=== PATIENT | female | born 1995 | race Caucasian/White ===

== ENCOUNTER 2017-08-06 18:34 | Inpatient (IN) | payer BC, MEDICAID ==
[~2017-08-06] VITALS: Ht 160 cm; Wt 91.4 kg
[~2017-08-06 18:34] MED LIST: METR-1 PO; RISP0.5T20 OR
[2017-08-06 19:00] VITALS: BP 124/69; PULSE 113; RESP 18; TEMP 98.4
[2017-08-06 20:24] LABS: HEMOGLOBIN 14.9 GM/DL (11.6-15.3); MEAN CELL VOLUME 91.9 FL (80.0-100.0); MEAN CORPUSCULAR HEMOGLOBIN 30.4 PG (27.0-34.0); MEAN CORPUSCULAR HGB CONC 33.1 % (32.0-36.0); MEAN PLATELET VOLUME 8.2 FL (7.0-11.0); PLATELET COUNT 318 TH/MM3 (150-450); RED BLOOD COUNT 4.89 MIL/MM3 (4.00-5.30); RED CELL DISTRIBUTION WIDTH 13.3 % (11.6-17.2); WHITE BLOOD COUNT 10.3 TH/MM3 (4.0-11.0)
[2017-08-06 20:25] LABS: BASOPHIL # 0.1 TH/MM3 (0-0.2); BASOPHIL % 0.8 % (0.0-2.0); EOSINOPHIL # 0.7 TH/MM3 (0-0.4); EOSINOPHIL % 6.7 % (0.0-4.0); LYMPH % 26.3 % (9.0-44.0); LYMPHOCYTE # 2.7 TH/MM3 (1.0-4.8); MONOCYTE # 0.8 TH/MM3 (0-0.9); NEUT % 58.2 % (16.0-70.0)
[2017-08-06 20:36] LABS: ALT (GPT) 37 U/L (10-53)
[2017-08-06 20:42] LABS: AST (GOT) 36 U/L (15-37); BICARBONATE 29.1 MEQ/L (21.0-32.0); BLOOD UREA NITROGEN 12 MG/DL (7-18); CALCIUM 9.4 MG/DL (8.5-10.1); CHLORIDE 106 MEQ/L (98-107); GLOMERULAR FILTRATION RATE 63 ML/MIN (>89); GLUCOSE,RANDOM 69 MG/DL (74-106); SODIUM (NA) 143 MEQ/L (136-145)
[2017-08-06 20:46] LABS: ALKALINE PHOSPHATASE 92 U/L (45-117); TOTAL BILIRUBIN ADULT 0.3 MG/DL (0.2-1.0)
[2017-08-06] MEDS ORDERED: MULTTAB67 PO (21:28)
--- NOTE | 2017-08-06 22:24 | PD ---
HPI Chief Complaint: Psychiatric Symptoms Time Seen by Provider: 22:13 Travel History International Travel<30 days: No Contact w/Intl Traveler<30days: No Traveled to known affect area: No History of Present Illness HPI 22-year-old female with history of schizoaffective mood disorder here for evaluation of right knee pain as well as requesting psychiatric evaluation for suicidal ideation. The patient reports that for the last 2 years, every day she has been thinking about committing suicide. She has tried to hurt herself in the past by overdosing. She states that her most recent plan involves helium and a plastic bag. She has been on several different medications for her depression and schizophrenia in the past, however currently she is not on any meds. She is also complaining of anterior right knee pain that started yesterday after cleaning floors while in her knees. She denies any direct trauma. PFSH Past Medical History ADHD: No Bipolar Disorder: Yes Anxiety: Yes Depression: Yes Cancer: No Cardiovascular Problems: No Diabetes: No Diminished Hearing: No Headaches: Yes (HX OF PER PT) Medical other: Yes (ptsd) Psychiatric: Yes (BIPOLAR, PTSD, ANXIETY) Immunizations Current: Yes Migraines: No Schizophrenia: Yes Seizures: No Thyroid Disease: No Ulcer: No Tetanus Vaccination: > 5 Years Influenza Vaccination: No ?: Not LMP: 07/24/17 : 0 Ovarian Cysts: Yes Past Surgical History Appendectomy: No Section: No Cholecystectomy: No Other Surgery: No Social History Alcohol Use: Yes (EVERY OTHER WEEK 3) Tobacco Use: Yes (1/2 PACK) Substance Use: Yes Allergies-Medications (Allergen,Severity, Reaction): Coded Allergies: aripiprazole (Unverified Allergy, Intermediate, SHAKING, 08/06/17) doxycycline (Unverified Allergy, Intermediate, UNKNOWN, 08/06/17) latex (Verified Allergy, Intermediate, 08/06/17) minocycline (Unverified Allergy, Intermediate, UNKNOWN, 08/06/17) naproxen (Verified Allergy, Intermediate, 08/06/17) oxcarbazepine (Unverified Allergy, Intermediate, UNKNOWN, 08/06/17) tigecycline (Unverified Allergy, Intermediate, UNKNOWN, 08/06/17) Reported Meds & Prescriptions Reported Meds & Active Scripts Active Reported Multiple Vitamin 1 Tab 1 Tab PO DAILY Review of Systems Except as stated in HPI: all other systems reviewed are Neg Physical Exam Narrative GENERAL: Well-developed, well-nourished, comfortable, no apparent distress. SKIN: Focused skin assessment warm/dry. HEAD: Atraumatic. Normocephalic. EYES: Pupils equal and round. No scleral icterus. No injection or drainage. ENT: Mucous membranes pink and moist. NECK: Trachea midline. No JVD. CARDIOVASCULAR: Regular rate and rhythm. No murmur appreciated. RESPIRATORY: No accessory muscle use. Clear to auscultation. Breath sounds equal bilaterally. GASTROINTESTINAL: Abdomen soft, non-tender, nondistended. MUSCULOSKELETAL: No obvious deformities. No clubbing. No cyanosis. No edema. Right knee without warmth or erythema with mild anterior tenderness, with normal range of motion. NEUROLOGICAL: Awake and alert. No obvious cranial nerve deficits. Motor grossly within normal limits. Normal speech. PSYCHIATRIC: Flat affect. Poor eye contact. Data Data Last Documented VS Vital Signs Date Time Temp Pulse Resp B/P (MAP) Pulse Ox O2 Delivery O2 Flow Rate FiO2 08/06/17 21:29 20 08/06/17 19:00 98.4 113 124/69 (87) Orders Orders Complete Blood Count With Diff (08/06/17 19:06) Comprehensive Metabolic Panel (08/06/17 19:06) Thyroid Stimulating Hormone (08/06/17 19:06) Psych Screen (08/06/17 19:06) Drug Screen, Random Urine (08/06/17 19:06) Knee, Complete (4vws) (08/06/17 ) Acetaminophen (Tylenol) (08/06/17 23:30) Labs Laboratory Tests Test 08/06/17 19:35 08/06/17 19:44 Urine Opiates Screen NEG Urine Barbiturates Screen NEG Urine Amphetamines Screen POS Urine Benzodiazepines Screen NEG Urine Cocaine Screen POS Urine Cannabinoids Screen POS White Blood Count 10.3 TH/MM3 Red Blood Count 4.89 MIL/MM3 Hemoglobin 14.9 GM/DL Hematocrit 45.0 % Mean Corpuscular Volume 91.9 FL Mean Corpuscular Hemoglobin 30.4 PG Mean Corpuscular Hemoglobin Concent 33.1 % Red Cell Distribution Width 13.3 % Platelet Count 318 TH/MM3 Mean Platelet Volume 8.2 FL Neutrophils (%) (Auto) 58.2 % Lymphocytes (%) (Auto) 26.3 % Monocytes (%) (Auto) 8.0 % Eosinophils (%) (Auto) 6.7 % Basophils (%) (Auto) 0.8 % Neutrophils # (Auto) 6.0 TH/MM3 Lymphocytes # (Auto) 2.7 TH/MM3 Monocytes # (Auto) 0.8 TH/MM3 Eosinophils # (Auto) 0.7 TH/MM3 Basophils # (Auto) 0.1 TH/MM3 CBC Comment DIFF FINAL Differential Comment Blood Urea Nitrogen 12 MG/DL Creatinine 1.10 MG/DL Random Glucose 69 MG/DL Total Protein 8.0 GM/DL Albumin 4.0 GM/DL Calcium Level 9.4 MG/DL Alkaline Phosphatase 92 U/L Aspartate Amino Transf (AST/SGOT) 36 U/L Alanine Aminotransferase (ALT/SGPT) 37 U/L Total Bilirubin 0.3 MG/DL Sodium Level 143 MEQ/L Potassium Level 3.7 MEQ/L Chloride Level 106 MEQ/L Carbon Dioxide Level 29.1 MEQ/L Anion Gap 8 MEQ/L Estimat Glomerular Filtration Rate 63 ML/MIN Thyroid Stimulating Hormone 3rd Gen 0.715 uIU/ML MDM Medical Decision Making Medical Screen Exam Complete: Yes Emergency Medical Condition: Yes Differential Diagnosis Depression, suicidal ideation, right knee sprain Narrative Course After interviewing the patient, she was placed under a Blanco act by me as I believe she is a harm to herself. Vital signs reviewed. CBC is unremarkable. CMP is remarkable for creatinine 1.1, GFR 63, otherwise unremarkable. Urine drug screen is positive for amphetamines, cocaine, and cannabinoids. Right knee x-ray: Suspected patellar tendinosis. No fracture or subluxation of the right knee. Patient is medically cleared for psychiatric evaluation and disposition by them. Diagnosis Primary Impression: Medical clearance for psychiatric admission Joseph Nicole MD Aug 06, 2017 22:24
--- NOTE | 2017-08-06 22:49 | RADRPT ---
EXAM DATE/TIME: 08/06/2017 22:27 [place] COMPARISON: No previous studies available for comparison. INDICATIONS : Right knee pain for the past week. Painful to walk on. No prior trauma. MEDICAL HISTORY : None. SURGICAL HISTORY : None. ENCOUNTER: Initial ACUITY: 1 week PAIN SCORE: 10/10 LOCATION: Right knee. FINDINGS: No fracture, subluxation or significant joint effusion demonstrated. The patellar tendon appears mild ly thickened on the lateral view. CONCLUSION: Suspected patellar tendinosis. No fracture or subluxation of the right knee. Bryan Hill MD on August 06, 2017 at 22:46 Board Certified Radiologist. This report was verified electronically.
[2017-08-06] MEDS ORDERED: ACETAMINOPHEN 325 MG TAB PO ONE (23:30)
[2017-08-07 07:38] VITALS: BP 116/71; PULSE 83; RESP 16; O2SAT 96
[2017-08-07 14:19] VITALS: BP 131/76; PULSE 70; RESP 14; O2SAT 98
[2017-08-07 18:06] VITALS: BP 133/56; PULSE 69; RESP 16; O2SAT 100
[2017-08-07] MEDS ORDERED: diphenhydrAMINE HCL 50 MG CAP - HS PRN PO (21:15)
[2017-08-07] MEDS ORDERED: MAGNESIUM HYDROXIDE SUSP 30 ML CUP PO PRN (21:15)
[2017-08-07] MEDS ORDERED: hydrOXYzine HCL 50 MG TAB PO PRN (21:15)
[2017-08-07] MEDS ORDERED: ACETAMINOPHEN 325 MG TAB PO PRN (21:15)
[2017-08-07] MEDS ORDERED: diphenhydrAMINE HCL 50 MG/ML VIAL - HS PRN IM (21:15)
[2017-08-07] MEDS ORDERED: ALUMINUM/MAGNESIUM/SIMETH 30 ML CUP PO PRN (21:15)
[2017-08-07 22:13] VITALS: BP 129/85; PULSE 60; RESP 18; TEMP 98; O2SAT 99
[2017-08-08 05:46] VITALS: BP 108/56; PULSE 61; RESP 18; TEMP 97.7; O2SAT 97
[2017-08-08 07:23] LABS: AUTOMATED NEUTROPHIL # 3.1 TH/MM3 (1.8-7.7); BASOPHIL # 0.1 TH/MM3 (0-0.2); BASOPHIL % 1.1 % (0.0-2.0); EOSINOPHIL # 0.6 TH/MM3 (0-0.4); EOSINOPHIL % 7.8 % (0.0-4.0); HEMOGLOBIN 13.6 GM/DL (11.6-15.3); LYMPH % 38.8 % (9.0-44.0); LYMPHOCYTE # 2.8 TH/MM3 (1.0-4.8); MEAN CELL VOLUME 90.4 FL (80.0-100.0); MEAN CORPUSCULAR HEMOGLOBIN 30.7 PG (27.0-34.0); MEAN PLATELET VOLUME 8.1 FL (7.0-11.0); MONO % 8.5 % (0.0-8.0); MONOCYTE # 0.6 TH/MM3 (0-0.9); NEUT % 43.8 % (16.0-70.0); PLATELET COUNT 267 TH/MM3 (150-450); RED BLOOD COUNT 4.43 MIL/MM3 (4.00-5.30); RED CELL DISTRIBUTION WIDTH 13.3 % (11.6-17.2); WHITE BLOOD COUNT 7.2 TH/MM3 (4.0-11.0)
[2017-08-08 07:42] LABS: BICARBONATE 25.6 MEQ/L (21.0-32.0); BLOOD UREA NITROGEN 6 MG/DL (7-18); CALCIUM 8.9 MG/DL (8.5-10.1); CHLORIDE 107 MEQ/L (98-107); CHOLESTEROL 109 MG/DL (120-200); CREATININE 0.77 MG/DL (0.50-1.00); GLOMERULAR FILTRATION RATE 95 ML/MIN (>89); GLUCOSE,RANDOM 97 MG/DL (74-106); SODIUM (NA) 143 MEQ/L (136-145); TRIGLYCERIDES 76 MG/DL (42-150)
[2017-08-08 07:52] LABS: CHOLESTEROL/ HDL RATIO 3.28 RATIO; FREE T4 1.08 NG/DL (0.76-1.46); HDL CHOLESTEROL 33.2 MG/DL (40.0-60.0); LDL CHOLESTEROL 61 MG/DL (0-99)
[2017-08-08] MEDS: NICOTINE 21 MG/24 HR PATCH T-DERMAL SCH (08:50)
[2017-08-08] MEDS: PALIPERIDONE ER 6 MG TAB PO SCH (13:15)
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
[2017-08-08 15:58] LABS: HEMOGLOBIN A1C 5.5 % (4.3-6.0)
[2017-08-08 18:26] VITALS: BP 138/89; PULSE 67; RESP 16; TEMP 98; O2SAT 100
[2017-08-08] MEDS: REMOVE OLD NICOTINE PATCH T-DERMAL SCH (21:00)
[2017-08-09 05:42] VITALS: BP_SYST 103; PULSE 69; RESP 18; TEMP 98; O2SAT 98
[2017-08-09] MEDS: PALIPERIDONE ER 6 MG TAB PO SCH (09:14)
[2017-08-09] MEDS: NICOTINE 21 MG/24 HR PATCH T-DERMAL SCH (09:14)
--- NOTE | 2017-08-09 16:10 | HHI.PYPN ---
Subjective Remarks Patient seen for follow, chart reviewed. Discussion nursing staff reported patient continues report feeling depressed, seclusive to room but is attending groups, slept well, denying suicide ideations. Patient was found in the room notably, cooperative. Patient states that she misses being home but feeling somewhat better and had some difficulty with sleep last night. Patient denies any auditory hallucinations today stating that she is trying to stay busy which helps decrease the voices. Patient continues report feeling depressed but less intense today. She continues to have intermittent suicide ideations. Patient discussed interest in being on long-acting injectable. Review of Systems Except as stated in HPI: all other systems reviewed are Neg Mental Status Examination Appearance: Appropriate Consciousness: Alert Orientation: x4 Motor Activity: Normal gait Speech: Unremarkable Language: Adequate Fund of Knowledge: Inadequate Attention and Concentration: Adequate Memory: Unremarkable Mood: Sad Affect: Sad Thought Process & Associations: Intact, Linear Thought Content: Appropriate Hallucination Type: None Delusion Type: None Suicidal Ideation: Yes (Intermittent) Suicidal Plan: No Suicidal Intention: No Homicidal Ideation: No Homicidal Plan: No Homicidal Intention: No Insight: Fair Judgment: Impulsive Results Vitals/IOs Vital Signs Date Time Temp Pulse Resp B/P (MAP) Pulse Ox O2 Delivery O2 Flow Rate FiO2 08/09/17 05:42 98.0 69 18 103/ 98 08/07/17 18:06 Room Air Assessment & Plan Problem List: (1) Schizoaffective disorder ICD Codes: F25.9 - Schizoaffective disorder, unspecified Assessment & Plan Estimated LOS: 3-5 days. Patient this time continues report feeling depressed although appears to be improving but continues with intermittent suicide ideations but sensation of auditory hallucinations. We will continue current treatment, continue monitor mood and behavior. Discharge planning in progress. Justification for Cont. Inpt. At risk of further decompensation at lower level of care Discharge Planning Patient return back to her boyfriend's residence once psychiatrically stable. Dustin Herring MD Aug 09, 2017 16:10
[2017-08-09 18:05] VITALS: BP 137/76; PULSE 98; RESP 20; TEMP 98.4; O2SAT 100
[2017-08-09] MEDS: REMOVE OLD NICOTINE PATCH T-DERMAL SCH (21:00)
[2017-08-10 05:31] VITALS: BP 106/57; PULSE 74; RESP 16; TEMP 97.8; O2SAT 97
[2017-08-10] MEDS: NICOTINE 21 MG/24 HR PATCH T-DERMAL SCH (10:03)
[2017-08-10] MEDS: PALIPERIDONE ER 6 MG TAB PO SCH (10:04)
--- NOTE | 2017-08-10 13:18 | HHI.PYPN ---
Subjective Remarks Patient was seen and case discussed with nursing. Patient is compliant with her medications and behaving well on the unit. Per nursing she is spending her morning in bed. She denies auditory hallucinations. Patient denies suicidal or homicidal ideation intent or plan. So she is hoping for discharge next week. Concerned about job loss. Mental Status Examination Appearance: Appropriate Consciousness: Alert Orientation: x4 Motor Activity: Normal gait Speech: Unremarkable Language: Adequate Fund of Knowledge: Inadequate Attention and Concentration: Adequate Memory: Unremarkable Mood: Sad Affect: Sad Thought Process & Associations: Intact, Linear Thought Content: Appropriate Hallucination Type: None Delusion Type: None Suicidal Ideation: No Suicidal Plan: No Suicidal Intention: No Homicidal Ideation: No Homicidal Plan: No Homicidal Intention: No Insight: Fair Judgment: Impulsive Results Vitals/IOs Vital Signs Date Time Temp Pulse Resp B/P (MAP) Pulse Ox O2 Delivery O2 Flow Rate FiO2 08/10/17 05:31 97.8 74 16 106/57 (73) 97 08/07/17 18:06 Room Air Assessment & Plan Problem List: (1) Schizoaffective disorder ICD Codes: F25.9 - Schizoaffective disorder, unspecified Assessment & Plan Continue current treatment plan Justification for Cont. Inpt. Patient will decompensate in a less restrictive setting Amilcar Sorto DO Aug 10, 2017 13:18
[2017-08-10] MEDS: REMOVE OLD NICOTINE PATCH T-DERMAL SCH (21:00)
[2017-08-11 05:08] VITALS: BP 108/60; PULSE 79; RESP 16; TEMP 97.6; O2SAT 99
[2017-08-11] MEDS: PALIPERIDONE ER 6 MG TAB PO SCH (08:36)
[2017-08-11] MEDS: NICOTINE 21 MG/24 HR PATCH T-DERMAL SCH (08:37)
--- NOTE | 2017-08-11 10:51 | HHI.PYPN ---
Subjective Remarks Patient was seen and case discussed with nursing. Patient is pleasant and cooperative with exam. She is bright and cheerful during the interview. Describes her mood today is 8 out of 10. Shaking forward to a visit from her boyfriend. She denies suicidal homicidal ideation intent or plan. Mental Status Examination Appearance: Appropriate Consciousness: Alert Orientation: x4 Motor Activity: Normal gait Speech: Unremarkable Language: Adequate Fund of Knowledge: Adequate Attention and Concentration: Adequate Memory: Unremarkable Mood: Appropriate Affect: Appropriate Thought Process & Associations: Intact, Linear Thought Content: Appropriate Hallucination Type: None Delusion Type: None Suicidal Ideation: No Suicidal Plan: No Suicidal Intention: No Homicidal Ideation: No Homicidal Plan: No Homicidal Intention: No Insight: Fair Judgment: Impulsive Results Vitals/IOs Vital Signs Date Time Temp Pulse Resp B/P (MAP) Pulse Ox O2 Delivery O2 Flow Rate FiO2 08/11/17 05:08 97.6 79 16 108/60 (76) 99 08/07/17 18:06 Room Air Intake and Output 08/11/17 08/11/17 08/12/17 08:00 16:00 00:00 Intake Total 360 ml Balance 360 ml Assessment & Plan Problem List: (1) Schizoaffective disorder ICD Codes: F25.9 - Schizoaffective disorder, unspecified Assessment & Plan Continue current treatment plan Justification for Cont. Inpt. Patient will decompensate in a less restrictive setting Amilcar Sorto DO Aug 11, 2017 10:51
[2017-08-11 16:57] VITALS: BP 137/64; PULSE 100; RESP 18; TEMP 98; O2SAT 100
[2017-08-11 18:23] VITALS: BP 137/64; PULSE 100; RESP 18; TEMP 98; O2SAT 100
[2017-08-11] MEDS: REMOVE OLD NICOTINE PATCH T-DERMAL SCH (21:00)
[2017-08-12 06:34] VITALS: BP 108/57; PULSE 59; RESP 17; TEMP 97.7
[2017-08-12] MEDS: PALIPERIDONE ER 6 MG TAB PO SCH (08:33)
[2017-08-12] MEDS: NICOTINE 21 MG/24 HR PATCH T-DERMAL SCH (08:33)
[2017-08-12] MEDS ORDERED: INVE6TAB3 PO (16:22)
--- NOTE | 2017-08-12 16:23 | HHI.DS ---
Psychiatry Discharge Summary Inpatient Psychiatric care?: Yes Advance Directive: No Reason Not Provided: DECLINED Mental Health AdvanceDirective: No Health Care Proxy: No Admission Admission Date Aug 07, 2017 at 20:38 Admission Diagnosis: (1) Schizoaffective disorder ICD Code: F25.9 - Schizoaffective disorder, unspecified Brief History Patient is a 22-year-old woman, single, no children domiciled with boyfriend, employed, with a past psychiatric history of schizoaffective disorder bipolar type, PTSD, with multiple psychiatric admissions (last time at 7 years old), multiple suicide attempts (last time in May of this year), with history of self injury behavior, history of polysubstance use (methamphetamines/cocaine/ heroine), who had presented to the ED due to right knee pain and was endorsing suicide ideations which patient was admitted to the inpatient psychiatry for further evaluation and management. Patient was found lying hospital and that to be tearful but cooperative interview today. Patient states for the past 2 weeks he had been going on it polysubstance binge including methamphetamine which he states she smoked, snorted, and 8, cocaine use in the form of crack cocaine and powder, and smoked heroin. Patient states that she had been having worsening suicide ideations for the past 2 weeks and for this reason I went on a drug binge. Patient reports having disturbed sleep, decreased appetite, energy, concentration, with feeling depressed along with feeling helpless and hopeless. Patient states that she has not had been having thoughts of just quitting her job and jumping off a bridge. Patient reports having decreased self-esteem feeling that she is a failure as a person and had been neglecting her self-care for the past couple of weeks. Patient also mentions she had been engaging in risky behaviors such as promiscuity without protection, endorsing racing thoughts but denying any decreased need for sleep. Patient denies any perceptual disturbances at this time. No delusional material elicited. Family psychiatric history: Father with antisocial personality disorder, uncle with ADD D, grandmother with schizoaffective disorder, no suicides in the family. Past psychiatric history: Previous psychiatric diagnoses of schizoaffective disorder bipolar type, PTSD, 20 previous psychiatric admissions, last time being a 61 years old, 6 prior suicide attempts, last time being in May 2017 via overdose with substances, history of self-induced behavior via burning self with hot water, punching self in the face. Patient reports previous medication trials include risperidone, Wellbutrin, lithium, Geodon, Prozac, Zoloft, trazodone, Abilify. Substance use history: Patient reports tobacco use (+), alcohol use previously heavy but now reports drinking twice every 2 weeks last time being 2 weeks ago, daily marijuana use for the past couple of months reports having used acid, shrooms, Xanax, benzos, description opioids. Past medical history: Denies Allergies: Abilify, doxycycline, latex, minocycline, naproxen, oxcarbamazepine, tigecycline Social history: Single, no children, domiciled with boyfriend and his family, employed at a [employer] full-time, no history, no asked to firearms. Collateral contact (boyfriend) Mello Davis [phone] Tobacco Use In Past 30 Days: 5 or More Cigarettes/Day Alcohol Use: 2-4 Times Per Month Hospital Course Patient is a 22-year-old woman, single, no children domiciled with boyfriend, employed, with a past psychiatric history of schizoaffective disorder bipolar type, PTSD, with multiple psychiatric admissions (last time at 17 years old), multiple suicide attempts (last time in May of this year), with history of self injury behavior, history of polysubstance use (methamphetamines/cocaine/ heroine), who had presented to the ED due to right knee pain and was endorsing suicide ideations which patient was admitted to the inpatient psychiatry for further evaluation and management. Patient was started on paliperidone 6mg PO daily for mood stabilization and psychosis which she tolerated well with no notable adverse drug reactions. Patient was noted to be compliant with treatment with fair insight into the importance of adhering to her treatment. She was noted with improvement in mood, denied any perceptual disturbances nor report any delusions; denied having any suicidal or homicidal ideations and was future oriented. She was observed by staff to participate with staff adequately and compliant with treatment. Patient was noted to participate in self care, engaging with staff, began participating in groups/activities and maintaining adequate hygiene. Patient reported feeling more hopeful, future oriented and motivated to continue treatment and outpatient follow up. She was counseled on importance of abstinence from substance use and was agreeable to outpatient rehabilitation program for substance use. Treatment team was able to set up outpatient follow up appointments which the patient can continue her current medication regimen. Upon discharge patient stated that she was feeling better, reported feeling well with the treatment, as well as motivation to continue recommendations and denied any SI, HI, perceptual disturbances or delusions. Weighing the acute, chronic, and protective factors and based on the available evidence, I cpht to a reasonable degree of medical certainty that the patient is at low imminent risk of harm to self or others from a mental illness as defined under the [place] act and his level of function is adequate as observed on the unit for planned level of outpatient care. She was counseled regarding warning signs for need to return to the psychiatric emergency room as part of a general safety plan. Patient advised to call 911 or go nearest ED in case of emergency. Patient agreed with plan. Results Blood Pressure 108 / 57 Vital Signs Date Time Temp Pulse Resp B/P (MAP) Pulse Ox O2 Delivery O2 Flow Rate FiO2 08/12/17 06:34 97.7 59 17 108/57 (74) 08/11/17 18:23 100 Laboratory Results Test 08/08/17 06:35 Cholesterol Level 109 MG/DL (120-200) HDL Cholesterol 33.2 MG/DL (40.0-60.0) Hemoglobin A1c 5.5 % (4.3-6.0) LDL Cholesterol 61 MG/DL (0-99) Triglycerides Level 76 MG/DL (42-150) Summary of Procedures none Imaging Last Impressions Knee X-Ray 08/06/17 0000 Signed Impressions: Service Date/Time: Sunday, August 06, 2017 22:27 - CONCLUSION: Suspected patellar tendinosis. No fracture or subluxation of the right knee. Bryan Hill MD Pending results at discharge: No Medications # of Antipsychotic meds at D/C: 1 Approp Antipsych med options 1 - Minimum of three failed multiple trials of monotherapy. 2 - Documented plan to taper to monotherapy due to previous use of multiple meds OR cross-taper in progress at D/C. 3 - Documentation of augmentation of Clozapine. 4 - Justification other than those listed in allowable values 1-3, document here : Discharge Discharge Date: Aug 12, 2017 Discharge Diagnosis: (1) Schizoaffective disorder ICD Code: F25.9 - Schizoaffective disorder, unspecified Pt Condition on Discharge: Stable Discharge Disposition: Discharge Home Discharge Instructions Diet Instructions: As Tolerated, No Restrictions Activities you can perform: Regular-No Restrictions Discharge Time > 30 minutes Mental Status Examination Appearance: Appropriate Consciousness: Alert Orientation: x4 Motor Activity: Normal gait Speech: Unremarkable Language: Adequate Fund of Knowledge: Adequate Attention and Concentration: Adequate Memory: Unremarkable Mood: Appropriate Affect: Appropriate Thought Process & Associations: Intact, Goal directed, Linear Thought Content: Appropriate Hallucination Type: None Delusion Type: None Suicidal Ideation: No Suicidal Plan: No Suicidal Intention: No Homicidal Ideation: No Homicidal Plan: No Homicidal Intention: No Insight: Fair Judgment: Impulsive Discharge/Advance Care Plan Health Problems: (1) Schizoaffective disorder Goals to promote your health * To prevent worsening of your condition and complications * To maintain your health at the optimal level Directions to meet your goals Take your medications as prescribed Follow your dietary instruction Follow activity as directed Keep your appointments as scheduled Take your immunizations and boosters as scheduled If your symptoms worsen call your PCP, if no PCP go to Urgent Care Center or Emergency Room For 17/12 questions related to your inpatient stay or results of tests pending at discharge, please contact Dr. Dustin Herring at Smoking is Dangerous to Your Health. Avoid second hand smoking Dustin Herring MD Aug 12, 2017 16:22
== END 2017-08-12 17:10 | disposition home or self-care (01) | DRG 885 ==
LOC: NEPD 18:34 → NEDA 08-07 20:38 → H260 08-07 21:38
PROVIDERS: ADMIT Student in an Organized Health Care Education/Training Program; ATTEND Student in an Organized Health Care Education/Training Program
DX: F25.9 Schizoaffective disorder, unspecified (principal); F19.90 Other psychoactive substance use, unspecified, uncomplicated; M25.561 Pain in right knee; Z81.8 Family history of other mental and behavioral disorders; Z72.0 Tobacco use
CPT/HCPCS: 73564; 80048; 80053; 80061; 80307; 83036; 84439; 84443; 85025